=== PATIENT | female | born 1945 | race Caucasian/White ===

== ENCOUNTER → 2016-05-02 | Outpatient (CLI) | payer MEDICARE | END | disposition home or self-care (01) | LOC: MAMMO 13:40 | DX: Z12.31 Encounter for screening mammogram for malignant neoplasm of breast (principal) ==

== ENCOUNTER 2018-08-08 19:51 | Emergency (ER) | payer MEDICARE ==
[~2018-08-08] VITALS: Ht 170.1 cm; Wt 81.6 kg
[2018-08-08] MEDS ORDERED: CEPHALEXIN500 M1 PO (22:20)
== END 2018-08-08 22:23 | disposition home or self-care (01) ==
LOC: ED 19:51
DX: S61.217A Laceration without foreign body of left little finger without damage to nail, initial encounter (principal); Z88.8 Allergy status to other drugs, medicaments and biological substances; Z88.7 Allergy status to serum and vaccine; Z91.012 Allergy to eggs; W45.8XXA Other foreign body or object entering through skin, initial encounter; Y93.89 Activity, other specified; Y92.89 Other specified places as the place of occurrence of the external cause; Y99.8 Other external cause status

== ENCOUNTER → 2019-08-12 | Outpatient (CLI) | payer MEDICARE ==
[~2019-08-12] MED LIST: CEPHALEXIN500 M1 PO
== END | disposition home or self-care (01) ==
LOC: MAMMO 05-12 09:30
DX: Z12.31 Encounter for screening mammogram for malignant neoplasm of breast (principal)

== ENCOUNTER 2022-01-11 16:15 | Emergency (ER) | payer MEDICARE ==
[~2022-01-11] VITALS: Ht 170.1 cm; Wt 70.3 kg
[2022-01-11] MEDS ORDERED: LOSARTAN-HCTZ1 EAC1 PO (16:57)
[2022-01-11] MEDS ORDERED: LOVASTATIN40 MG PO (16:57)
[2022-01-11] MEDS ORDERED: LEVOCETIRIZINE D5 M1 PO (16:57)
[2022-01-11] MEDS ORDERED: METFORMIN XR500 MG PO (16:57)
[2022-01-11] MEDS ORDERED: HYDROCHLOROTHIA25 M1 PO (16:58)
[2022-01-11 17:34] LABS: MEAN CORPUSCULAR HGB 29.3 pg (27.0-31.0); MEAN CORPUSCULAR HGB CONC 33.8 g/dl (33.0-37.0); MEAN PLATELET VOLUME 9.9 fl (9.6-12.3); PLATELET COUNT AUTOMATED 261 10*3/uL (130-400); RED CELL DISTRI WIDTH 13.3 % (0-14.5)
[2022-01-11 17:35] LABS: MANUAL DIFF REFLEX YES
[2022-01-11 17:57] LABS: CREATININE 1.56 mg/dL (0.55-1.02); POTASSIUM 3.7 mmol/L (3.5-5.1); TOTAL PROTEIN 6.9 gm/dL (6.4-8.2)
[2022-01-11 18:30] LABS: ATYPICAL LYMPHS 24 % (0-0); BASOPHILS 1 % (0-1); PLATELET SUFFICIENCY NORMAL (NORMAL); TOTAL CELLS COUNTED 100 #CELLS
== END 2022-01-11 20:19 | disposition home or self-care (01) ==
LOC: ED 16:15
PROVIDERS: Student in an Organized Health Care Education/Training Program
DX: U07.1 COVID-19 (principal); Z91.012 Allergy to eggs; Z98.890 Other specified postprocedural states; N18.9 Chronic kidney disease, unspecified; R79.89 Other specified abnormal findings of blood chemistry; E87.20 Acidosis, unspecified; Z88.8 Allergy status to other drugs, medicaments and biological substances; Z88.7 Allergy status to serum and vaccine

== ENCOUNTER → 2023-06-19 | Outpatient (CLI) | payer MEDICARE ==
[~2023-06-19] MED LIST changes: +HYDROCHLOROTHIA25 M1 PO; +LEVOCETIRIZINE D5 M1 PO; +LOSARTAN-HCTZ1 EAC1 PO; +LOVASTATIN40 MG PO; +METFORMIN XR500 MG PO
== END | disposition home or self-care (01) ==
LOC: MAMMO 13:29
PROVIDERS: ATTEND Physician Assistant
DX: Z12.31 Encounter for screening mammogram for malignant neoplasm of breast (principal); N64.9 Disorder of breast, unspecified

== ENCOUNTER → 2023-07-28 | Outpatient (CLI) | payer MEDICARE | END | disposition home or self-care (01) | LOC: RESCLI 00:46 | PROVIDERS: ATTEND Internal Medicine | DX: I10 Essential (primary) hypertension (principal); E11.9 Type 2 diabetes mellitus without complications; E73.9 Lactose intolerance, unspecified; K57.30 Diverticulosis of large intestine without perforation or abscess without bleeding; C44.92 Squamous cell carcinoma of skin, unspecified; E78.5 Hyperlipidemia, unspecified; E78.00 Pure hypercholesterolemia, unspecified; Z88.8 Allergy status to other drugs, medicaments and biological substances; Z79.899 Other long term (current) drug therapy; Z98.890 Other specified postprocedural states ==

== ENCOUNTER → 2023-12-17 | Outpatient (CLI) | payer MEDICARE | END | disposition home or self-care (01) | LOC: D 14:00 | PROVIDERS: ATTEND Physician Assistant | DX: E11.9 Type 2 diabetes mellitus without complications (principal) ==

== ENCOUNTER → 2024-06-30 | Outpatient (CLI) | payer MEDICARE | END | disposition home or self-care (01) | LOC: MAMMO 11:00 | PROVIDERS: ATTEND Physician Assistant | DX: Z12.31 Encounter for screening mammogram for malignant neoplasm of breast (principal); N64.89 Other specified disorders of breast; R92.323 Mammographic fibroglandular density, bilateral breasts ==

== ENCOUNTER → 2024-12-09 | Outpatient (CLI) | payer MEDICARE | END | disposition home or self-care (01) | LOC: RAD 12-06 13:30 | PROVIDERS: ATTEND Physician Assistant | DX: M85.851 Other specified disorders of bone density and structure, right thigh (principal); Z78.0 Asymptomatic menopausal state ==